=== PATIENT | male | born 1945 | race Two or more races ===

== ENCOUNTER 2018-10-26 05:30 | Day surgery (SDC) | payer OTHER | END 2018-10-26 09:50 | disposition home or self-care (01) | LOC: AMB-ENDOS 05:30 | DX: D12.2 Benign neoplasm of ascending colon (principal) ==

== ENCOUNTER 2020-03-06 09:40 | Day surgery (SDC) | payer OTHER | END 2020-03-06 13:40 | disposition home or self-care (01) | LOC: AMB-ENDOS 09:40 | PROVIDERS: ATTEND Surgery | DX: D12.3 Benign neoplasm of transverse colon (principal); Z20.828 Contact with and (suspected) exposure to other viral communicable diseases ==